=== PATIENT | female | born 1970 | race Two or more races ===

== ENCOUNTER 2022-09-03 12:39 | Inpatient (IN) | payer OTHER ==
[~2022-09-03] VITALS: Ht 170.2 cm; Wt 92.1 kg
[2022-09-04] MEDS ORDERED: METFORMIN HCL750 MG PO (08:12)
[2022-09-04] MEDS ORDERED: PEPCID40 MG PO (08:13)
[2022-09-04] MEDS ORDERED: ATORVASTATIN CA10 MG PO (08:13)
[2022-09-04] MEDS ORDERED: COZAAR50 MG PO (08:13)
[2022-09-07] MEDS ORDERED: TRULICITY1.5 MG/0.5 (14:50)
== END 2022-09-10 09:49 | disposition home or self-care (01) | DRG 743 ==
LOC: O/R 09-07 06:42 → SURH 09-07 07:45 → OB/GYN 09-07 17:53
PROVIDERS: Urology; ADMIT Obstetrics & Gynecology; ATTEND Obstetrics & Gynecology
PROC: 0T788DZ Dilation of Bilateral Ureters with Intraluminal Device, Via Natural or Artificial Opening Endoscopic (ICD-10-PCS; 2022-09-07)
PROC: 0TJB8ZZ Inspection of Bladder, Via Natural or Artificial Opening Endoscopic (ICD-10-PCS; 2022-09-07)
PROC: 0UT70ZZ Resection of Bilateral Fallopian Tubes, Open Approach (ICD-10-PCS; principal; 2022-09-07 09:30)
PROC: 0UT20ZZ Resection of Bilateral Ovaries, Open Approach (ICD-10-PCS; 2022-09-07 09:30)
DX: N83.01 Follicular cyst of right ovary (principal); N83.02 Follicular cyst of left ovary; Z20.822 Contact with and (suspected) exposure to COVID-19; N73.6 Female pelvic peritoneal adhesions (postinfective)